=== PATIENT | male | born 1960 ===

== ENCOUNTER 2022-08-07 14:57 | Inpatient (IN) | payer OTHER ==
[~2022-08-07] VITALS: Ht 172.7 cm; Wt 74.8 kg
[2022-08-08] MEDS ORDERED: SYNJARDY 5-5001 EACH PO (11:35)
[2022-08-08] MEDS ORDERED: CARVEDILOL3.125 M1 PO (11:36)
[2022-08-08] MEDS ORDERED: LIPITOR20 MG PO (11:36)
[2022-08-08] MEDS ORDERED: CHILDREN'S ASPI81 MG PO (11:36)
[2022-08-08] MEDS ORDERED: MULTI VITAMIN1 EACH PO (11:36)
== END 2022-08-15 17:39 | disposition home or self-care (01) | DRG 329 ==
LOC: O/R 08-13 07:21 → SURG 08-13 07:21
PROVIDERS: ADMIT Colon & Rectal Surgery; ATTEND Colon & Rectal Surgery
PROC: 07BB4ZZ Excision of Mesenteric Lymphatic, Percutaneous Endoscopic Approach (ICD-10-PCS; 2022-08-13)
PROC: 8E0W4CZ Robotic Assisted Procedure of Trunk Region, Percutaneous Endoscopic Approach (ICD-10-PCS; 2022-08-13)
PROC: 0DTF4ZZ Resection of Right Large Intestine, Percutaneous Endoscopic Approach (ICD-10-PCS; principal; 2022-08-13 19:00)
PROC: 4A12X4Z Monitoring of Cardiac Electrical Activity, External Approach (ICD-10-PCS; 2022-08-14)
DX: C18.1 Malignant neoplasm of appendix (principal); J95.821 Acute postprocedural respiratory failure; C18.2 Malignant neoplasm of ascending colon; R09.02 Hypoxemia; R59.0 Localized enlarged lymph nodes; E11.9 Type 2 diabetes mellitus without complications; I11.9 Hypertensive heart disease without heart failure; I25.10 Atherosclerotic heart disease of native coronary artery without angina pectoris
CPT/HCPCS: 44204; 38570; S2900